=== PATIENT | female | born 1945 | race Caucasian/White ===

== ENCOUNTER → 2019-05-10 | Outpatient (CLI) | payer MEDICARE, OTHER ==
--- NOTE | 2019-05-10 15:58 | XR ---
Lumbar spine HISTORY: Chronic low back pain 3 views of the lumbar spine correlated to prior exam 02/28/2014 The S-shaped scoliosis is again noted, there is multilevel spondylosis and a rotatory component. Ther e is loss of disc height at intervertebral levels with multilevel vacuum phenomenon. Minimal retrolis thesis grade 1 L3-4, L2-3. Sclerosis present in the posterior elements compatible with facet arthropa thy. Minimal anterolisthesis grade 1 L4-5. Lumbar vertebral bodies show preserved height. Bone minera lization is reduced. Postop change noted to the head on the right. IMPRESSION: Scoliosis, degenerative disc disease, facet arthropathy similar to prior exam. Multilevel spondylolisthesis. Osteopenia.
--- NOTE | 2019-05-10 17:41 | XR ---
Cervical spine history: Chronic right and posterior neck pain 2 views of the cervical spine correlated prior exam 02/28/2014 There is multilevel facet arthropathy. Anterolisthesis grade 1 C3-4, C4-5, there is loss of disc heig ht and intervertebral levels C3-4, C4-5, C5-6, C6-7 and C7-T1. Prevertebral soft tissues are normal. Bone mineralization is reduced. Cervical vertebral bodies show preserved height. There may be a spina l curvature the thoracic spine. IMPRESSION: Degenerative disc disease and facet arthropathy with spondylolisthesis similar to prior e xam.
== END | disposition home or self-care (01) ==
LOC: RADXRYALE 14:51
PROVIDERS: ATTEND Family Medicine
DX: M43.12 Spondylolisthesis, cervical region (principal); M43.16 Spondylolisthesis, lumbar region; M50.30 Other cervical disc degeneration, unspecified cervical region; M51.36 Other intervertebral disc degeneration, lumbar region; M46.92 Unspecified inflammatory spondylopathy, cervical region; M46.96 Unspecified inflammatory spondylopathy, lumbar region; M41.86 Other forms of scoliosis, lumbar region; M85.88 Other specified disorders of bone density and structure, other site
CPT/HCPCS: 72040; 72100

== ENCOUNTER → 2019-06-13 | Outpatient (CLI) | payer MEDICARE, OTHER ==
--- NOTE | 2019-06-13 15:06 | MR ---
EXAMINATION TYPE: MR cspine/lspine wo con DATE OF EXAM: 06/13/2019 COMPARISON: X-rays dated 05/10/2019 HISTORY: Low back pain / Cervicalgia TECHNIQUE: Multiplanar, multisequence imaging of the lumbar spine is performed without IV contrast. FINDINGS: Cervical spine: There is slight reversal of the usual cervical lordosis. Multilevel degenerative disc disease is seen. There is mild grade 1 anterolisthesis of C4 and C5 and minimal retrolisthesis of C5 on C6 and C6 on C7. T1/T2 hyperintense vertebral body hemangioma is present of T4. Cervical spinal c ord signal is slightly patchy given patient motion but overall felt to be within normal limits. C2-C3: Small disc bulge and facet arthropathy without significant spinal canal stenosis or neural for aminal narrowing. C3-C4: Disc bulge and minimal facet arthropathy without spinal canal stenosis nor neural foraminal na rrowing. C4-C5: Ligament with buckling on the left is noted in combination with a broad-based disc bulge, face t arthropathy, and uncovertebral hypertrophy creating mild spinal canal stenosis and minimal bilatera l neural foraminal narrowing. C5-C6: There is a broad-based disc bulge, uncovertebral hypertrophy, and facet arthropathy creating m ild spinal canal stenosis and moderate bilateral neural foraminal narrowing. C6-C7: There is right-sided uncovertebral hypertrophy and a right eccentric disc bulge creating moder ate right neuroforaminal narrowing and mild spinal canal stenosis. No left neural foraminal narrowing . C7-T1: There is a broad-based disc bulge creating mild bilateral neural foraminal narrowing without s becki canal stenosis. Lumbar spine: There is multilevel malalignment. There is minimal retrolisthesis of L5 on S1 and grade 1 anterolisth esis of L4 on L5. There is retrolisthesis of L3 on L4 4 mm and retrolisthesis of L2 on L3 of 5 mm. Th ere are 2 vertebral body hemangiomas at T11. Multilevel disc disease is seen. Conus medullaris termin ates at L2. L1-L2: There is a right eccentric disc bulge contributing to mild bilateral neural foraminal narrowin g without spinal canal stenosis. L2-L3: There is a broad-based disc bulge and facet arthropathy as well as retrolisthesis creating mod erate bilateral neural foraminal narrowing, right greater than left and mild spinal canal stenosis. L3-L4: There is retrolisthesis and a broad-based disc bulge in combination with facet arthropathy cre ating severe right and mild left neural foraminal narrowing and moderate spinal canal stenosis. Ligam entum flavum buckling contribute to these findings. L4-L5: There is a broad-based disc bulge and facet arthropathy with anterolisthesis creates severe ri ght neural foraminal narrowing and nerve root impingement and mild left neural foraminal narrowing as well as moderate spinal canal stenosis. L5-S1: There is a central annular tear and small central disc herniation superimposed upon a left ecc entric disc bulge. There is facet arthropathy and ligamentum flavum buckling creating mild left neura l foraminal narrowing. No right neural foraminal narrowing or spinal canal stenosis. There are multiple probable renal sinus cysts bilaterally. Paraspinal muscular atrophy is also seen. IMPRESSION: 1. Multilevel malalignment of the cervical spine and lumbar spine as detailed above, likely on the ba sis of degenerative disc disease. 2. Moderate spinal canal stenosis at L3-L4 and L4-L5 and mild spinal canal stenosis at L2-L3 as a res ult of ligamentum flavum buckling, facet arthropathy and broad-based disc bulges. Mild spinal canal s tenosis is also seen at C4-C5 from a broad-based disc bulge. 3. Moderate degenerative disc disease of the cervical spine and lumbar spine creating variable degree s of neural foraminal narrowing as detailed level above. 4. Small central annular tear and central disc herniation at L5-S1 without spinal canal stenosis.
== END | disposition home or self-care (01) ==
LOC: RADMRIMAIN 12:32
PROVIDERS: ATTEND Family Medicine
DX: M48.02 Spinal stenosis, cervical region (principal); M50.30 Other cervical disc degeneration, unspecified cervical region; M48.061 Spinal stenosis, lumbar region without neurogenic claudication; M51.26 Other intervertebral disc displacement, lumbar region; M51.27 Other intervertebral disc displacement, lumbosacral region; M46.96 Unspecified inflammatory spondylopathy, lumbar region
CPT/HCPCS: 72141; 72148

== ENCOUNTER → 2019-08-30 | Outpatient (CLI) | payer MEDICARE, OTHER ==
[2019-08-30 11:32] VITALS: BP 133/81; PULSE 103; RESP 16
--- NOTE | 2019-08-30 12:19 | P.PAINCN ---
History of Present Illness - Reason for Consult Consult date: 08/30/19 - History of Present Illness This is an initial consultation visit for this 73 years old female with a chronic history of severe neck pain and low back pain, but the low back pain is causing more trouble to this patient, the pain started 10 years ago and increased intensity over the last couple of years, interfering with her quality of life, it is constant, preventing her from doing activities of daily livings, she is ambulate using cane, the pain in the low back area radiated to both buttocks, she denies any motor or sensory deficit, no fever or night sweats, no change in the bowel movements or urination, the neck pain is localized in the neck area and is not radiated to the upper extremity patient denies any numbness or tingling sensation, is constant and increased with any neck movement Past Medical History Past Medical History: Hyperlipidemia, Hypertension History of Any Multi-Drug Resistant Organisms: None Reported Past Surgical History: Orthopedic Surgery Additional Past Surgical History / Comment(s): bilateral hip replacement, bilateral cataract removal Past Anesthesia/Blood Transfusion Reactions: No Reported Reaction Past Psychological History: No Psychological Hx Reported Smoking Status: Never smoker Past Drug Use History: None Reported Medications and Allergies Home Medications Medication Instructions Recorded Confirmed Type Atorvastatin [Lipitor] 1 tab PO DAILY 08/30/19 08/30/19 History Celecoxib [CeleBREX] 1 cap PO DAILY 08/30/19 08/30/19 History HYDROcodone/APAP 10-325MG [[place] 1 tab PO Q4HR PRN 08/30/19 08/30/19 History 10-325] Lisinopril 1 tab PO DAILY 08/30/19 08/30/19 History Multivitamin [Multivitamins Adult 1 tab PO DAILY 08/30/19 08/30/19 History Gummies] Allergies Allergy/AdvReac Type Severity Reaction Status Date / Time morphine AdvReac Nausea & Verified 08/30/19 11:12 Vomiting Physical Exam Vitals: Vital Signs Pulse Resp BP Pulse Ox 08/30/19 11:18 103 H 16 133/81 94 L Intake and Output 08/29/19 08/30/19 08/30/19 22:59 06:59 14:59 Other: Weight 81.647 kg REVIEW OF ORGAN SYSTEMS: CONSTITUTIONAL: No fevers or chills. No recent weight loss. EYES: History of troubles with vision. No glasses. HEENT: No difficulties with hearing. No nosebleeds. No difficulty swallowing. RESPIRATORY: Past pneumonia. Denies any troubles with breathing or dyspnea on exertion. CARDIOVASCULAR: Denies any chest pain, palpitations, or recent heart attacks. GASTROINTESTINAL: Denies fatty food intolerance. Has change in bowel habits and gas bloat. GENITOURINARY: Denies any blood in urine. Has increased urinary frequency. NEUROLOGICAL: Denies any numbness or tingling along the distal extremities. No seizure disorders or headaches. MUSCULOSKELETAL: Has low back pain, neck pain. SKIN: Past t skin cancer. No rash. PSYCHIATRIC: Denies current depression or suicidal thoughts. ENDOCRINE: Denies current thyroid disorders. Denies any blood sugar glucose intolerance. HEME/LYMPHATIC: Denies any lumps and bumps around the neck. History of deep venous thrombosis. ALLERGY/IMMUNOLOGY: No immunoglobulin therapy. No immune deficiencies. BREAST: Denies current breast lumps, pain or nipple discharge. Physical Examinations : Constitutiona : Cooperative , not in acute distress . HEENT : nech : supple , no Lymphadenopathy , normal thyroid size . eyes : no ptosis , no icterus, no photophobia . ENT : normal of hearing , normal oropharynx , no Thrush . Respiratory : Chest clear to auscultations Bilaterally , no wheezing , no Rhonchi . Cardiovascula : regular rate and rhythem , S1 , S2 , no S3 , no S4. Gastrointestina : abdomen soft no tenderness , bowel sounds , no organomegally . Genitourinary : Defferred . neurologic : Cranial nerve II to XII intact , no focal neurological deffecit . psychatric : alert , oriented X 3 , appropriate affect , intact judgment and insight . Lymphatic : no Lymphadenopathy . musculoskeltal : Cervical Spine motor stregnth in the deltoid and biceps, normal right side , normal Left side motor stregnth biceps and the wrist extensors normal right side ,normal left side . motor stregnth in the triceps muscle . normal Right side , normal Left side deep tendon reflexes normal at the biceps , normal at Brachioradialis , normal at triceps. cervical facet loading test: Positive Bilateral Lumber spine moter stegnth lower extremities ,thigh and legs 5/5 Right side , 5/5 Left side deep tendon reflexes : normal Knee Jerk , normal ankle Jerk positive lumber facet Loading Test Range of motion of the lumbar spine Flexion 30 degrees, extension 10 degrees strait leg raising test = negative bilaterally Fabere test= negative bilaterally mild tenderness over the Sacroiliac joint on the R and L sides Results Comments: MRI of the cervical spine C2 to C7 multilevel bulging disc disease and multilevel cervical facet arthropathy. MRI of the lumbar spine= 10 to to S1 multilevel lumbar bulging disc disease and multilevel lumbar facet arthropathy and lumbar spinal stenosis Assessment and Plan Plan: Assessment and plan=1 lumbar spondylosis with lumbar facet arthropathy. 2- lumbar degenerative disc disease Schimpf will be good candidate for diagnostic medial branch block lumbar area L2, L3 ,L4 ,L5 x2 and if it's possible proceed with RFA She should continue her current medication [place] 10/325 when necessary and Celebrex Time with Patient: Greater than 30 PQRS Measure Charge Sheet Measure #130: Documentation of Current Meds in Medical Chart: Patient's medications documented in chart Measure #226: Tobacco Use: Screen & Cessation Intervention: Pt not a tobacco user Measure #111: Pneumonia Vaccination: Pneumococcal vaccine administered or previously received Measure #47: Advance Care Plan: Advance care planning discussed & documented, pt chose/unable to give Measure #412: Opioid Treatment Agreement: No documentation of signed opioid treatment agreement Measure #408: Opioid Therapy Follow-up Evaluation: Patient had NO f/u eval minimum every 3 months during opioid therapy Measure #317: Preventitive Care & Scrn High Bld Press & F/U: Normal blood pressure, f/u not required Measure #128: Body Mass Index (BMI) Screening & Follow-up: BMI documented ABOVE normal parameters - f/u documented Measure #131: Pain Assessment & Follow-up: Pain positive & plan documented, Follow-up scheduled Measure #431: Unhealthy Alcohol Use Preventative Care & Scrn: Patient not identified as an unhealthy alcohol user PQRS Narrative: Smoking Status Never smoker Blood Pressure 133/81 Pain Intensity [Bilateral 10 Lower Back] Scale Used Numeric (1 - 10) Hx Alcohol Use (MH) No Home Medications: Ambulatory Orders Atorvastatin [Lipitor] 1 tab PO DAILY 08/30/19 Celecoxib [CeleBREX] 1 cap PO DAILY 08/30/19 HYDROcodone/APAP 10-325MG [[place] 10-325] 1 tab PO Q4HR PRN 08/30/19 Lisinopril 1 tab PO DAILY 08/30/19 Multivitamin [Multivitamins Adult Gummies] 1 tab PO DAILY 08/30/19
== END | disposition home or self-care (01) ==
LOC: PNWHC3 11:06
PROVIDERS: ATTEND Specialist
DX: G89.29 Other chronic pain (principal); M54.5 Low back pain; M51.36 Other intervertebral disc degeneration, lumbar region; M47.816 Spondylosis without myelopathy or radiculopathy, lumbar region; M46.96 Unspecified inflammatory spondylopathy, lumbar region; M51.37 Other intervertebral disc degeneration, lumbosacral region; Z79.1 Long term (current) use of non-steroidal anti-inflammatories (NSAID); Z79.899 Other long term (current) drug therapy; Z88.5 Allergy status to narcotic agent
CPT/HCPCS: 99201

== ENCOUNTER 2019-09-13 07:11 | Day surgery (SDC) | payer MEDICARE, OTHER ==
[2019-09-12 10:12] VITALS: BMI 32.9
[~2019-09-13 07:11] MED LIST: LACTATED RINGERS 1,000 ML IV SCH
[2019-09-13 07:44] VITALS: RESP 18; TEMP 97.8
[2019-09-13] MEDS ORDERED: LIDOCAINE 1% 20 ML VIAL (10MG/ML) FOR IV START INTRADERMA ONE (07:44)
[2019-09-13] MEDS ORDERED: LACTATED RINGERS 1,000 ML IV ONE (07:44)
--- NOTE | 2019-09-13 08:45 | P.PCN ---
Date of Procedure: 09/13/19 Procedure(s) Performed: PREOPERATIVE DIAGNOSIS : 1- Lumbar spondylosis with Facet Arthropathy without myelopathy . 2- Lumber degenerative disc disease POSTOPERATIVE DIAGNOSIS: 1- Lumbar spondylosis with Facet Arthropathy without myelopathy . 2- Lumber degenerative disc disease PROCEDURE: Diagnostic bilateral L2 ,L3 , L4 , L5 medial branch block under fluoroscopy guidance(fluoroscopy images available in the radiology Department ). ( to block the facet joint between the L3 -4 , L4- 5 , L5-S1 ) ANESTHESIA: Local with Ropivacain 0.5 % 6 ml , moderate sedation with intravenous Versed 1 mg and Fentanyl 50 mcg. EBL: Minimal COMPLICATION: None. IV FLUIDS: 100 mL of normal saline. PROCEDURE INDICATION: Chronic low back pain secondary to Facet arthropathy unresponsive to conservative treatment. PROCEDURE DESCRIPTION: the patient was seen and identified in the preop holding area , risks and benefits and possible complications of the procedure and alternative were discussed with the patient, and the patient agreed to proceed with the procedure and signed the consent IV was started and vital signs monitored during the procedure and fluoroscopy was used to maximize the benefit and accuracy of the needle placement, and sedation was given to decrease patient anxiety, patient was taken to the procedure room and placed in prone position vital signs monitored in the back prepped with chlorhexidine X3 then under strict sterile technique using a right oblique fluoroscopy ,the junction of the transverse process and the superior articulating process of the right L2 , L3 , L4 ,, and L5 vertebra which corresponding to the fluoroscopy image of the eye of the Faizan dog on the block side for the medial branches and subsequently , after local infiltration of skin and subcu tissuies with Ropivacaine 0.5 % , one mL at each level ,then 22-gauge Quincke-type needles , 4 needle was used , each one of them placed at the junction of the base of the transverse process and the superior articular process at the appropriate level, and the needle was advanced until the periosteum contacted, needle placement confirmed with AP oblique and lateral view and after appropriate needle placement confirmed, and after negative aspiration for heme and CSF and there was no paresthesia 2 mL of Ropivacaine 0.5% mixed with 20 mg Depo-Medrol , then half mL injected at each level after negative aspiration the needle subsequently removed and the same procedure repeated for the left side at left side at L2 , L3, L4, and L5 levels. At the end of the procedure and the needles removed and a bandage applied after the skin was cleaned the cleaning solution patient taken to recovery room in stable condition and monitors in the recovery room for 20-30 minutes and discharged home in stable condition after discharge criteria met and patient will follow up with the pain clinic in 2-4 weeks
[2019-09-13] MEDS ORDERED: IV FLUID CONTINUATION 850 ML IV ONE (08:47)
[2019-09-13 09:09] VITALS: BP 137/78; PULSE 4
--- NOTE | 2019-09-13 09:53 | FL ---
Fluoroscopy HISTORY: Pain 14 seconds fluoroscopy time supplied to the referring clinician. 4 intraoperative C-arm images docum ent the procedure. See dictated report from anesthesia.
== END 2019-09-13 09:34 | disposition home or self-care (01) ==
LOC: ORPAIN 07:11
PROVIDERS: ATTEND Specialist
DX: G89.29 Other chronic pain (principal); M47.816 Spondylosis without myelopathy or radiculopathy, lumbar region; M51.36 Other intervertebral disc degeneration, lumbar region; Z88.5 Allergy status to narcotic agent
CPT/HCPCS: 64493; 64494; 64495; J2250; J1030; J3010; 99152

== ENCOUNTER 2019-09-27 07:15 | Day surgery (SDC) | payer MEDICARE, OTHER ==
[2019-09-26 12:47] VITALS: BMI 32.9
[2019-09-27] MEDS ORDERED: LACTATED RINGERS 1,000 ML IV ONE (07:41)
[2019-09-27 07:48] VITALS: TEMP 97.3
--- NOTE | 2019-09-27 08:41 | P.PCN ---
Date of Procedure: 09/27/19 Procedure(s) Performed: PREOPERATIVE DIAGNOSIS : Lumbar spondylosis with Facet Arthropathy without myelopathy POSTOPERATIVE DIAGNOSIS: same PROCEDURE: Diagnostic lumbar medial branch block with fluoroscopy at bilateral medial branch of L2, L3, L4, and dorsal rami of L5 ANESTHESIA: Local anesthetic; sedation with 4 mg of midazolam Surgeon: Katrin Brown MD PROCEDURE INDICATION: Lumbar spondylosis, this is her second diagnostic medial branch block PROCEDURE DESCRIPTION: The patient was seen and identified in the preop holding area , risks and benefits and possible complications of the procedure and alternative were discussed with the patient, and the patient agreed to proceed with the procedure and signed the consent IV was started and vital signs monitored during the procedure and fluoroscopy was used to maximize the benefit and accuracy of the needle placement, and sedation was given to decrease patient anxiety, patient was taken to the procedure room and placed in prone position vital signs monitored in the back prepped. Under strict sterile technique using a right oblique fluoroscopy ,the junction of the transverse process and the superior articulating process of the I lateral, L2- L3, L3- 4 , L4- 5, and L5-S1 vertebra which corresponding to the fluoroscopy image of the eye of the Faizan dog on the block side for the medial branches and subsequently , after local infiltration of skin and subcutaneous tissues with lidocaine 1% one mL at each level ,then one 25-gauge Quincke-type needles was placed at the junction of the base of the transverse process and the superior articular process at the appropriate level, and the needle was advanced until the periosteum contacted, needle placement confirmed with AP and oblique view and after appropriate needle placement confirmed, and after negative aspiration, 0.5 mL of Marcaine 0.5% was injected at each level and the needle subsequently removed. Images were saved to radiology. At the end of the procedure and the needles removed and a bandage applied after the skin was cleaned the cleaning solution patient taken to recovery room in stable condition and monitors in the recovery room for 20-30 minutes and discharged home in stable condition after discharge criteria met and patient will follow up with the pain clinic in 2-4 weeks The importance of the pain diary was stressed to the patient, because she states that the first block may have helped EBL: Minimal COMPLICATION: None.
[2019-09-27] MEDS ORDERED: IV FLUID CONTINUATION 600 ML IV ONE (08:53)
[2019-09-27 08:55] VITALS: RESP 18
[2019-09-27 09:36] VITALS: BP 133/80; PULSE 64
--- NOTE | 2019-09-27 11:26 | FL ---
Fluoroscopy HISTORY: Pain 12 seconds fluoroscopy time supplied to the referring clinician. 6 intraoperative C-arm images docum ent the procedure. See dictated report from anesthesia.
== END 2019-09-27 09:35 | disposition home or self-care (01) ==
LOC: ORPAIN 07:15
PROVIDERS: ATTEND Student in an Organized Health Care Education/Training Program
DX: M47.816 Spondylosis without myelopathy or radiculopathy, lumbar region (principal); Z88.5 Allergy status to narcotic agent
CPT/HCPCS: 64493; 64494; 64495; J2250; 99152

== ENCOUNTER → 2019-10-19 | Outpatient (CLI) | payer MEDICARE, OTHER ==
[2019-10-19 11:58] VITALS: BP 132/83; PULSE 97; RESP 16
--- NOTE | 2019-10-19 12:19 | P.PAINPG ---
Subjective Progress Note Date: 10/19/19 This is a follow-up visit for this 73 years old female with a chronic history of severe low back pain she is diagnosed with lumbar spondylosis with lumbar facet arthropathy, status post diagnostic medial branch block lumbar area L2, L3, L4, L5 x2 , she get significant improvement of her low back pain after the diagnostic medial branch block (more than 80% ) for short-term only, she denies any motor or sensory deficit she denies any fever or night sweats and that is no change in bowel movements or urination Objective - Vital Signs Vital signs: Vital Signs Temp Pulse 97 10/19/19 11:53 Resp 16 10/19/19 11:53 BP 132/83 10/19/19 11:53 Pulse Ox 93 L 10/19/19 11:53 Intake & Output 10/18/19 10/19/19 10/19/19 18:59 06:59 18:59 Weight 81.647 kg - Constitutional Constitutional Comment(s): Physical Examinations : -Constitutiona : Cooperative , not in acute distress . -HEENT : nech : supple , no Lymphadenopathy , normal thyroid size . : eyes : no ptosis , no icterus, no photophobia . - neurologic : Cranial nerve II to XII intact , no focal neurological deffecit . -psychatric : alert , oriented X 3 , appropriate affect , intact judgment and insight . -Lymphatic : no Lymphadenopathy . - musculoskeltal : Lumber spine moter stegnth lower extremities ,thigh and legs 5/5 Right side , 5/5 Left side deep tendon reflexes : normal Knee Jerk , normal ankle Jerk lumber facet Loading Test =positive Right , positive Left mild tenderness over the Sacroiliac joint on the Right , and Left sides Assessment and Plan Plan: Assessment and plan= lumbar spondylosis with lumbar facet arthropathy Patient had good results after the diagnostic medial branch block, she will be good candidate to have Arafat of the medial branch We'll do the right side first ,and left side and later on.( L2, L3, L4, L5 ) Time with Patient: Less than 30 PQRS Measure Charge Sheet Measure #130: Documentation of Current Meds in Medical Chart: Patient's medications documented in chart Measure #226: Tobacco Use: Screen & Cessation Intervention: Pt not a tobacco user Measure #111: Pneumonia Vaccination: Pneumococcal vaccine administered or previously received Measure #47: Advance Care Plan: Advance care planning discussed & documented, pt chose/unable to give Measure #412: Opioid Treatment Agreement: No documentation of signed opioid treatment agreement Measure #408: Opioid Therapy Follow-up Evaluation: Patient had NO f/u eval minimum every 3 months during opioid therapy Measure #317: Preventitive Care & Scrn High Bld Press & F/U: Normal blood pressure, f/u not required Measure #128: Body Mass Index (BMI) Screening & Follow-up: BMI documented ABOVE normal parameters - f/u documented Measure #131: Pain Assessment & Follow-up: Pain positive & plan documented, Follow-up scheduled Measure #431: Unhealthy Alcohol Use Preventative Care & Scrn: Patient not identified as an unhealthy alcohol user PQRS Narrative: Smoking Status Never smoker Blood Pressure 132/83 Pain Intensity [Bilateral 2 Lower Back] Scale Used Numeric (1 - 10) Hx Alcohol Use (MH) No Home Medications: Ambulatory Orders Celecoxib [CeleBREX] 200 mg PO QAM 08/30/19 HYDROcodone/APAP 10-325MG [[place] 10-325] 1 tab PO Q4HR PRN 08/30/19 Lisinopril 20 mg PO DAILY 08/30/19 Multivitamin [Multivitamins Adult Gummies] 1 tab PO DAILY 08/30/19 Controlled Substance Measures - Controlled Substance Measures Is patient prescribed a controlled substance at discharge?: No
== END ==
LOC: PNWHC3 11:38
PROVIDERS: ATTEND Specialist
DX: G89.29 Other chronic pain (principal); M47.816 Spondylosis without myelopathy or radiculopathy, lumbar region; M46.96 Unspecified inflammatory spondylopathy, lumbar region; Z79.899 Other long term (current) drug therapy; Z79.891 Long term (current) use of opiate analgesic
CPT/HCPCS: 99211

== ENCOUNTER 2019-12-20 06:43 | Day surgery (SDC) | payer MEDICARE, OTHER ==
[2019-12-19 10:27] VITALS: BMI 32.9
[~2019-12-20 06:43] MED LIST changes: +BUPIVACAINE (PF) 0.5% 30 ML VIAL ONE; -LACTATED RINGERS 1,000 ML IV SCH; +MIDAZOLAM 2 MG/2 ML VIAL ONE; +TRIAMCINOLONE ACETONIDE 40 MG/ML 1 ML VIAL ONE; +fentaNYL (PF) 50 MCG/ML 2 ML AMP ONE
[2019-12-20 07:14] VITALS: RESP 16; TEMP 97.6
[2019-12-20] MEDS ORDERED: LACTATED RINGERS 1,000 ML IV ONE ×2 (07:20→08:23)
--- NOTE | 2019-12-20 08:20 | P.PCN ---
Date of Procedure: 12/20/19 Surgeon: Dav Jennings Pathology: none sent Condition: stable Disposition: PACU Description of Procedure: PREOPERATIVE DIAGNOSIS: Lumbar spondylosis without myelopathy, morbid obesity POSTOPERATIVE DIAGNOSIS: Lumbar spondylosis without myelopathy,morbid obesity PROCEDURES : Right Radiofrequency thermocoagulation L3,L4 medial branchs and the dorsal ramus of L5 with fluoroscopic guidance ANESTHESIA: IV moderate conscious sedation with versed and fentanyl and local infiltration with lidocaine 1% 5 ml EBL: Minimal PROCEDURE INDICATION: The patient with low back pain secondary to lumbar facet arthropathy who had more than 50% relief of her pain with previous diagnostic lumbar medial branch block with bupivacaine. PROCEDURE DESCRIPTION / TECHNIQUE: The patient was seen and identified in the preoperative area. Risks, benefits, complications, including but not limited to risk of infection ,bleeding , allergic reactions to the medications and no complete pain relief , and alternatives were discussed with the patient, the patient agreed to proceed with the procedure and signed the consent. IV was started. Vital signs remained stable throughout the procedure. Patient was taken to the OR and time out was completed. The patient was placed in the prone position on the procedure table. The lumber area was prepped and draped in the usual sterile fashion. . Vital signs were closely monitored during the procedure .IV sedation was used during the procedure to decrease patients anxiety. The fluoroscopy AP view of the lumbar spine shows severe degenerative disc disease with significant bone spurs and scoliosis. This has prevented me from targeting the L2 medial branch. The target points were identified as follows: For the L5-S1 level which corresponds to the dorsal ramus of L5 the target point was at the superior medial aspect of the sacral ala on the Rt side of the spine on the AP view of fluoroscopy and for the L3, and L4 medial branches the target points were at the connection between the transverse process and the superior articular process of L4, and L5 vertebra respectively on the Right oblique view of fluoroscopy. skin was marked, and localized with 1% lidocaineat these points. Subsequently, an 18 -vt radiofrequency needles with a 10-mm curved active tips were advanced guided by fluoroscopy to each of the target points mentioned above in a superior medial direction to get the active tips as parallel as possible to the medial branches tracks. AP, oblique, and lateral views of fluoroscopy were used to verify needle tips position. Each level then underwent motor testing at 2.5 Hz and 0 to 3 volt with local stimulation, but no radicular symptoms down the legs. Thereafter radiofrequency thermocoagulation at 80 degrees celsius for 90 seconds after injecting 1 ml of PF Ropivacaine 0.5%(3 mls) with 20 mg of Kenalog. At the end of the procedure, the skin was cleansed and bandages were applied. COMPLICATIONS: No acute complications. DISPOSITION / PLANS: The patient was placed in a supine position and transferred to the recovery area in a stable condition for observation and was discharged from the recovery room after meeting discharge criteria. Home discharge instructions given to the patient by the staff. The patient was reexamined prior to discharge. The patient will schedule a follow up in the clinic in 2-4 weeks.
[2019-12-20 08:37] VITALS: BP 145/77; PULSE 60
--- NOTE | 2019-12-20 12:27 | FL ---
Fluoroscopy HISTORY: Pain 16 seconds fluoroscopy time supplied to the referring clinician. 2 intraoperative C-arm images docum ent the procedure. See dictated report from anesthesia.
== END 2019-12-20 08:51 | disposition home or self-care (01) ==
LOC: ORPAIN 06:43
PROVIDERS: ATTEND Anesthesiology
DX: M47.816 Spondylosis without myelopathy or radiculopathy, lumbar region (principal); M51.36 Other intervertebral disc degeneration, lumbar region; M46.06 Spinal enthesopathy, lumbar region; M41.9 Scoliosis, unspecified; I10 Essential (primary) hypertension; E66.01 Morbid (severe) obesity due to excess calories; Z68.34 Body mass index [BMI] 34.0-34.9, adult; Z88.5 Allergy status to narcotic agent
CPT/HCPCS: 64635; 64636; J2250; J3301; J3010; 99152; 99153

== ENCOUNTER → 2020-11-15 | Outpatient (CLI) | payer MEDICARE, OTHER ==
--- NOTE | 2020-11-16 23:34 | MR ---
EXAMINATION TYPE: MR lumbar spine wo con DATE OF EXAM: 11/15/2020 COMPARISON: 06/13/2019 HISTORY: Low back pain and stiffness. Multiplanar multiecho imaging of the lumbar spine was performed without contrast. The lumbar vertebra show a levoscoliosis. There is moderate disc space narrowing throughout the lumba r spine. There is spurring of the endplates. There is 6 mm anterior subluxation of L4 in relation L5 on the sagittal images. There is spurring of the endplates. There is multilevel lumbar facet arthropa thy. There is developmentally adequate spinal canal and overall not a significant spinal stenosis. I see no focal bone destruction. There is no compression fracture. There is T11 vertebra increased sign al on the T1 and T2 images consistent with some fatty marrow replacement. There is narrowing of the right side L4-5 neural foramen. There is no lumbar paraspinal mass. IMPRESSION: Moderate multilevel spondylotic changes with a first-degree L4-5 spondylolisthesis. Mild levoscoliosi s. No acute fracture seen. No significant change compared to old exam. No significant spinal stenosis .
== END | disposition home or self-care (01) ==
LOC: RADMRIMAIN 10:14
PROVIDERS: ATTEND Family Medicine
DX: M43.16 Spondylolisthesis, lumbar region (principal); M47.816 Spondylosis without myelopathy or radiculopathy, lumbar region; M41.86 Other forms of scoliosis, lumbar region
CPT/HCPCS: 72148